=== PATIENT | female | born 1960 | race Caucasian/White ===

== ENCOUNTER 2016-10-07 20:14 | Emergency (ER) | payer MEDICAID ==
[2016-10-07 21:52] LABS: BASOPHIL % 0.4 % (0-2); PLATELET COUNT 202 x10^3mcL (130-400); RED CELL DISTRIBUTION WIDTH 12.8 % (11.5-14.5)
[2016-10-07 22:08] LABS: ALKALINE PHOSPHATASE 72 U/L (46-116); ALT/SGPT 19 U/L (14-59); AMYLASE 42 U/L (25-115); BILIRUBIN TOTAL 0.5 mg/dL (0.20-1.00); CARBON DIOXIDE 26.7 mmol/L (21-32); CHLORIDE SERUM 104 mmol/L (98-107); CREATININE SERUM 0.7 mg/dL (0.6-1.0); GFR1 > 60 mL/min; GLUCOSE SERUM 96 mg/dL (74-106); LIPASE 183 IU/L (73-393); SODIUM SERUM 139 mmol/L (136-145); TOTAL PROTEIN, SERUM 7.1 g/dL (6.4-8.2)
[2016-10-07 22:15] LABS: POTASSIUM SERUM 2.8 mmol/L (3.5-5.1)
[2016-10-07 22:26] LABS: ALBUMIN 3.6 g/dL (3.4-5.0); AST/SGOT 20 U/L (15-37); CALCIUM 8.6 mg/dL (8.5-10.1)
[2016-10-07 23:08] VITALS: BP 110/65
== END 2016-10-07 23:08 | disposition home or self-care (01) ==
LOC: ED 20:14
PROVIDERS: Specialist
DX: K80.50 Calculus of bile duct without cholangitis or cholecystitis without obstruction (principal); Z87.19 Personal history of other diseases of the digestive system; Z88.6 Allergy status to analgesic agent
CPT/HCPCS: 36415; 83880; J1885; Q0092

== ENCOUNTER 2018-02-11 19:28 | Emergency (ER) | payer MEDICAID ==
[~2018-02-11] VITALS: Ht 170.2 cm; Wt 84.8 kg
[2018-02-11 19:39] VITALS: Ht 170.2 cm; Wt 84.8 kg
[2018-02-11 21:40] VITALS: BP 122/77
== END 2018-02-11 21:40 | disposition home or self-care (01) ==
LOC: ED 19:28
DX: H10.13 Acute atopic conjunctivitis, bilateral (principal); I10 Essential (primary) hypertension; Z88.8 Allergy status to other drugs, medicaments and biological substances